=== PATIENT | female | born 1975 | race Caucasian/White ===

== ENCOUNTER 2017-08-24 05:21 | Day surgery (SDC) | payer BC ==
[2017-08-23 13:57] LABS: BASOPHILS % (AUTO) 0.5 % (0-1); EOSINOPHILS # (AUTO) 0.4 X10'3 (0-0.9); EOSINOPHILS % (AUTO) 5.3 % (0-6); LYMPHOCYTES # (AUTO) 2.5 X10'3 (1.1-4.8); LYMPHOCYTES % (AUTO) 35.5 % (21-51); MEAN CORPUSCULAR HEMOGLOBIN 31.5 PG (27.0-31.0); MEAN CORPUSCULAR HGB CONC 34.4 % (33.0-36.5); MEAN CORPUSCULAR VOLUME 91.4 FL (78-98); MEAN PLATELET VOLUME 7.7 FL (7.4-10.4); MONOCYTES # (AUTO) 0.7 X10'3 (0-0.9); MONOCYTES % (AUTO) 9.7 % (2-12); NEUTROPHILS # (AUTO) 3.4 X10'3 (1.8-7.7); PRE OP HEMATOCRIT 39.3 % (35.0-45.0); PRE OP HEMOGLOBIN 13.5 g/dL (12.0-16.0); PRE OP PLATELET COUNT 349 X10'3 (140-440); RED BLOOD COUNT 4.29 X10'6 (4.20-5.60); RED CELL DISTRIBUTION WIDTH 13.2 % (11.5-14.5)
[2017-08-23 14:12] LABS: ALBUMIN 3.5 G/DL (3.4-5.0); ALBUMIN/GLOBULIN RATIO 0.9 (1.1-1.5); ALKALINE PHOSPHATASE 44 IU/L (46-116); BLOOD UREA NITROGEN 15 MG/DL (7-18); CHLORIDE 104 MMOL/L (99-107); CREATININE 0.79 MG/DL (0.40-0.90); PRE OP ALT 23 U/L (30-65); PRE OP ANION GAP 7 (8-16); PRE OP AST 15 U/L (10-37); PRE OP BILIRUB, TOTAL 0.5 MG/DL (0.0-1.0); PRE OP GLUCOSE 95 MG/DL (70-104); PRE OP SODIUM 139 MMOL/L (135-145); TOTAL CARBON DIOXIDE 28.5 MMOL/L (24-32); TOTAL PROTEIN 7.5 G/DL (6.4-8.2); eGFR 81 ML/MIN
[2017-08-23 14:21] LABS: HCG SERUM QL NEGATIVE
[~2017-08-24] VITALS: Ht 154.9 cm; Wt 95.3 kg
[2017-08-24] VITALS (12 sets, daily range): BP systolic 104–159; BP diastolic 68–89
[~2017-08-24 05:21] MED LIST: IBUP-1985 PO
[2017-08-24] MEDS ORDERED: famotidine 20mg tablet PO ONE (05:30)
[2017-08-24] MEDS ORDERED: LIDOcaine 1% (10mg/ml) 2ml vial ONE (05:44)
[2017-08-24] MEDS ORDERED: ringers solution, lacted 1,000 ML IV SCH (07:07)
[2017-08-24] MEDS ORDERED: meperidine/PF 25mg/ml syringe IV PRN ×2 (07:10)
[2017-08-24] MEDS ORDERED: labetalol 20mg/4ml (5mg/ml) syringe IV PRN (07:10)
[2017-08-24] MEDS ORDERED: morphine 4 MG/ML inj SYRINge IV PRN ×2 (07:10)
[2017-08-24] MEDS ORDERED: ondansetron/PF 4mg/2ml inj IV PRN (07:10)
[2017-08-24] MEDS ORDERED: fentaNYL/PF 50MCG/1 ML 2ML syringe ONE ×2 (07:14→07:23)
[2017-08-24] MEDS ORDERED: midazolam 2 mg/2 ml injection ONE (07:14)
[2017-08-24] MEDS ORDERED: LIDOcaine 2% (20mg/ml) 5ml vial ONE (07:22)
[2017-08-24] MEDS ORDERED: propofol inj 20 ML IV ONE (07:22)
[2017-08-24] MEDS ORDERED: dexamethasone sod phosphate 4mg/ml inj. ONE (07:22)
[2017-08-24] MEDS ORDERED: dexamethasone sod phosphate 10mg/ml inj ONE (07:43)
[2017-08-24] MEDS ORDERED: sevoflurane 250ml liquid IH ONE (07:43)
[2017-08-24] MEDS ORDERED: ketorolac trometh. 30mg/ml inj. ONE (08:16)
[2017-08-24] MEDS ORDERED: oxyCODONE/APAP 5-325mg tablet PO ONE ×2 (09:30)
== END 2017-08-24 09:56 | disposition home or self-care (01) ==
LOC: PAS 05:21
PROVIDERS: ATTEND Obstetrics & Gynecology
DX: N85.8 Other specified noninflammatory disorders of uterus (principal); E66.9 Obesity, unspecified; Z79.1 Long term (current) use of non-steroidal anti-inflammatories (NSAID); Z68.39 Body mass index [BMI] 39.0-39.9, adult; Z90.49 Acquired absence of other specified parts of digestive tract; Z98.890 Other specified postprocedural states
CPT/HCPCS: 36415; 58558; 80053; 84703; 85025; 86885; 86900; 86901; A4355; A6255; J1100; J1885; J2001; J2175; J2250; J2704; J3010; J3490; J7030; J7120